=== PATIENT | male | born 1980 | race Asian ===

== ENCOUNTER 2016-07-20 05:30 | Emergency (ER) | payer OTHER ==
[~2016-07-20] VITALS: Ht 170.2 cm; Wt 74.8 kg
[2016-07-20 05:35] VITALS: BP 122/83
--- NOTE | 2016-07-20 06:00 | NUR ---
PATIENT PRESENTS TO ED WITH C/O VOMIT SINCE 0300AM THIS MORNING PT STATES DIDNT FALL NO TRAUMA TO THE AREA AND STATES WHEN HE CLOSES HIS EYES HE BECOMES DIZZY . SKIN IS PINK/WARM/DRY; AAOX4 WITH EVEN AND STEADY GAIT; LUNGS CLEAR BL; HR EVEN AND REGULAR; PT DENIES ANY FEVER, CP, SOB, OR COUGH AT THIS TIME; PATIENT STATES PAIN OF 0/10 AT THIS TIME; VSS; PATIENT POSITIONED FOR COMFORT; HOB ELEVATED; BEDRAILS UP X2; BED DOWN. ER MD MADE AWARE OF PT STATUS.
--- NOTE | 2016-07-20 06:01 | NUR ---
Dr. Santos evaluating patient at bedside.
[2016-07-20] MEDS ORDERED: NACL 0.9% 1,000 ML IV ONE ×2 (06:05→07:35)
[2016-07-20] MEDS ORDERED: MECLIZINE 25 MG TAB PO ONE (06:05)
[2016-07-20] MEDS ORDERED: DIAZEPAM PFS 10 MG/2 ML SYR IVP ONE ×2 (06:05→08:05)
--- NOTE | 2016-07-20 07:05 | NUR ---
RECEIVED REPORT FROM TRIPP WALTERS
[2016-07-20] MEDS ORDERED: ONDANSETRON 4 MG/2 ML VIAL IVP ONE (07:30)
[2016-07-20] MEDS ORDERED: PROMETHAZINE 25 MG/ML VIAL IVP ONE (09:00)
[2016-07-20 09:21] LABS: BASOPHILS # (AUTO) 0.2 K/uL (0.00-0.22); BASOPHILS % (AUTO) 1.6 % (0.0-2.0); EOSINOPHILS # (AUTO) 0.3 K/uL (0-0.4); HEMATOCRIT 41.1 % (36-52); HEMOGLOBIN 14.2 g/dL (12.0-18.0); LYMPHOCYTES # (AUTO) 0.7 K/uL (2.0-11.5); LYMPHOCYTES % (AUTO) 5.2 % (20.5-51.1); MEAN CORPUSCULAR HEMOGLOBIN 31 pg (27-31); MEAN CORPUSCULAR HGB CONC 34 g/dL (33-37); MEAN CORPUSCULAR VOLUME 91 fL (80-94); MONOCYTES # (AUTO) 0.3 K/uL (0.8-1.0); NEUTROPHILS # (AUTO) 12.9 K/uL (1.8-7.7); NEUTROPHILS % (AUTO) 89.2 % (42.2-75.2); PLATELET COUNT (AUTO) 143 K/uL (140-450); RED BLOOD CELL COUNT(AUTO) 4.53 MIL/uL (4.20-6.10); RED CELL DISTRIBUTION WIDTH 12.3 % (11.6-13.7); WHITE BLOOD COUNT (AUTO) 14.4 K/uL (4.8-10.8)
[2016-07-20 09:30] LABS: ANION GAP 11.6 (8-16); CALCIUM 7.8 mg/dL (8.5-10.1); CARBON DIOXIDE 26.3 mmol/L (21-32); CREATININE 0.8 mg/dL (0.6-1.3); POTASSIUM 3.9 mmol/L (3.5-5.1)
[2016-07-20 09:36] LABS: ALBUMIN 3.8 g/dL (3.4-5.0); TOTAL BILIRUBIN 0.5 mg/dL (0.0-1.0); TOTAL PROTEIN, SERUM 6.8 g/dL (6.4-8.2)
[2016-07-20] MEDS ORDERED: NACL 0.9% 1,000 ML IV SCH (10:16)
[2016-07-20] MEDS ORDERED: ONDANSETRON 4 MG/2 ML VIAL IVP PRN (10:20)
[2016-07-20] MEDS ORDERED: HYDROcodone/APAP 5/325 MG 1 TAB TAB PO PRN (10:20)
[2016-07-20] MEDS ORDERED: MECLIZINE 25 MG TAB PO PRN (10:20)
[2016-07-20] MEDS ORDERED: ACETAMINOPHEN 325 MG TAB PO PRN (10:20)
--- NOTE | 2016-07-20 10:31 | NUR ---
Néstor umana in ED - 07/20/16 at 1054 by [email or web address] Patient will be admitted to care of [facility] [place]. Admited to TELE Will go to [id number]. Belongings list completed. Report to TRIPP GLOVER.
--- NOTE | 2016-07-20 10:31 | NUR ---
gave report to maggie grady
[2016-07-20 10:36] LABS: APPEARANCE,URINE CLEAR (CLEAR); BILIRUBIN,URINE NEGATIVE (NEGATIVE); BLOOD, URINE NEGATIVE (NEGATIVE); COLOR,URINE YELLOW (YELLOW); LEUKOCYTE ESTERASE ,URINE NEGATIVE (NEGATIVE); NITRITE, URINE NEGATIVE (NEGATIVE); PROTEIN,URINE NEGATIVE (NEGATIVE); UGLUCOSE NEGATIVE (NEGATIVE); UROBILINOGEN,URINE 0.2 EU/dL (0.2 - 1)
[2016-07-20 10:39] LABS: MAGNESIUM 1.7 mg/dL (1.8-2.4); PHOSPHORUS 2.3 mg/dL (2.5-4.9)
[2016-07-20 10:40] LABS: AMPHETAMINE, URINE NEG. ng/ml (NEG <=1000); BARBITURATE, URINE NEG. ng/ml (NEG <=200); BENZODIAZEPINE, URINE NEG. ng/mL (NEG <=200); CANNABINOID, URINE NEG. ng/mL (NEG <=50); COCAINE, URINE NEG. ng/mL (NEG <=300); OPIATE, URINE NEG. ng/mL (NEG <=2000); PHENCYCLIDINE SCREEN,URINE NEG. ng/mL (NEG <=25)
--- NOTE | 2016-07-20 10:40 | NUR ---
PT WANTS TO DC. PT STABLES AT THIS TIME. CALLED [facility] TO DOUGLAS ADMIT
[2016-07-20 10:41] LABS: INR 1.2 (0.8-1.2); PARTIAL THROMBOPLASTIN TIME 28.5 secs (22-35.6); PROTHROMBIN TIME 11.4 secs (10.8-13.4)
[2016-07-20 10:48] LABS: AMYLASE 59 U/L (25-115); LIPASE 161 U/L (73-393)
[2016-07-20 10:50] VITALS: BP 131/82
[2016-07-20 10:50] LABS: FREE T4 (FREE THYROXINE) 1.12 ng/dL (0.76-1.46); THYROID STIMULATING HORMONE 0.99 uIU/mL (0.34-3.76)
--- NOTE | 2016-07-20 10:50 | NUR ---
Patient discharged with v/s stable. Written and verbal after care instructions given and explained. Patient alert, oriented and verbalized understanding of instructions. Ambulatory with steady gait. All questions addressed prior to discharge. ID band removed. Patient advised to follow up with PMD. Rx of VALIUM & ZOFRAN given. Patient educated on indication of medication including possible reaction and side effects. Opportunity to ask questions provided and answered.
[2016-07-21 08:14] LABS: HEMOGLOBIN A1C 5.1 % (4.8-5.6); T4 (THYROXINE) 6.1 ug/dL (4.5-12.0)
== END 2016-07-20 10:50 | disposition home or self-care (01) ==
LOC: MED 05:30 → UNDOADMIN 10:02 → MTU 10:02
DX: R11.2 Nausea with vomiting, unspecified (principal); R42 Dizziness and giddiness; Z90.89 Acquired absence of other organs
CPT/HCPCS: 36415; 80053; 80305; 81002; 81003; 82150; 83036; 83690; 83735; 84100; 84436; 84439; 84443; 84479; 85025; 85610; 85730; 96361; 96374; 96375; 96376; 99284; J2405; J2550; J3360; J7030; J8597